=== PATIENT | male | born 1975 | race Caucasian/White ===

== ENCOUNTER → 2016-10-25 | Day surgery (SDC) | payer BC ==
[~2016-10-25] VITALS: Ht 177.8 cm; Wt 89.8 kg
[2016-10-25] VITALS (11 sets, daily range): BP systolic 103–122; BP diastolic 52–79
[~2016-10-25] MED LIST: Alfentanil 2ml Inj ONE; Atropine Inj 1mg/10ml Syr IV PRN; Bupivacaine w/Epi 0.5% 30ml Vial INJ ONE; Clindamycin 4 ML ONE; Clindamycin 600mg 0 ML IV ONE; DiphenhydrAMINE 50mg/ml Inj IVP PRN; EPINEPHrine 1mg/1ml Amp ONE; Hydromorphone 0.5mg/0.5ml inj IVP PRN; Ketorolac 30mg Inj IV PRN; Ketorolac 60mg Inj IV PRN; LORazepam Inj 2mg/ml 1ml IV PRN; LR 1000ml 1,000 ML IVLG SCH; LR 1000ml ONE; Labetalol 5mg/ml 20ml vial IV PRN; Lidocaine 1% MPF 10mg/ml 5ml ONE; METFORMIN HCL500 M1 ORAL; Meperidine 25mg/ml Inj IV PRN; Metoclopramide 10mg/2ml Inj IVP PRN; Midazolam 2mg/2ml Inj IVP PRN; Midazolam 2mg/2ml Inj ONE; NS Irrig 2000ml IRRIG ONE; Norco 5mg/325mg tab ORAL PRN; Norco 7.5mg/325mg tab ORAL PRN; Oxycodone/Acetaminophen 5-325 ORAL PRN; Propofol 10mg/ml 100ml btl IV ONE; Sterile Water Irrig 1000ml IRRIG ONE; fentaNYL 100 mcg/2 mL IV PRN
--- NOTE | 2016-10-25 06:40 | Anethesia Preoperative Eval ---
Anesthesia Pre-op PMH/ROS General Date of Evaluation: Oct 25, 2016 Time of Evaluation: 06:56 Anesthesiologist: Mounika ASA Score: ASA 2 Mallampati Score Class I : Soft palate, uvula, fauces, pillars visible Class II: Soft palate, uvula, fauces visible Class III: Soft palate, base of uvula visible Class IV: Only hard plate visible Mallampati Classification: Class II Surgeon: Rehan Diagnosis: R Knee Pain Surgical Procedure: R Knee Arthroscopy Anesthesia History: none Family History: no anesthesia problems Allergies: Coded Allergies: PENICILLINS (Verified Allergy, Severe, 10/24/16) ANAPHYLACTIC SHOCK Medications: see eMAR Past Medical History Gastrointestinal/Genitourinary: Reports: other - Hemorrhoids Endocrine: Reports: DM PSxH Narrative: Appendectomy, Cervical Spine Anesthesia Pre-op Phys. Exam Physician Exam Last Vital Signs Date Time Temp Pulse Resp B/P Pulse Ox O2 Delivery O2 Flow Rate FiO2 10/25/16 05:50 97.3 52 20 103/59 98 Room Air Constitutional: NAD Neurologic: CN 2-12 intact Cardiovascular: RRR Respiratory: CTA Gastrointestinal: S/NT/ND Airway Exam Mallampati Score: Class II MO: full ROM: full Teeth: intact Anesthesia Pre-op A/P Risk Assessment & Plan Assessment: ASA 2 Plan: GA, BIS Status Change Before Surgery: No Pre-Antibiotics Dru mg Clindamycin IV Given Within 1 Hr of Incision: Yes Time Given: 07:08 Hector Ribera MD Oct 25, 2016 06:40
--- NOTE | 2016-10-25 06:42 | Immediate Post-Op Evaluation ---
Immediate Post-Op Evalulation Immediate Post-Op Evalulation Procedure: R Knee Arthroscopy Date of Evaluation: Oct 25, 2016 Time of Evaluation: 08:14 IV Fluids: 700 LR Blood Products: 0 Estimated Blood Loss: 8 Urinary Output: 0 Blood Pressure Systolic: 114 Blood Pressure Diastolic: 75 Pulse Rate: 64 Respiratory Rate: 16 O2 Sat by Pulse Oximetry: 100 Temperature (Fahrenheit): 98.2 Pain Score (1-10): 2 Nausea: No Vomiting: No Complications 0 Patient Status: awake, reacts, patent, extubated, none Hydration Status: adequate Dru mg Clindamycin IV Given Within 1 Hr of Incision: Yes Time Given: 07:08 Hector Ribera MD Oct 25, 2016 06:42
--- NOTE | 2016-10-25 06:43 | 48 Hour Post Anesthesia Eval ---
Post Anesthesia Evaluation Procedure: R Knee Arthroscopy Date of Evaluation: Oct 25, 2016 Time of Evaluation: 10:21 Blood Pressure Systolic: 112 0: 72 Pulse Rate: 63 Respiratory Rate: 18 Temperature (Fahrenheit): 98.2 O2 Sat by Pulse Oximetry: 100 Airway: patent Nausea: No Vomiting: No Pain Intensity: 2 Hydration Status: adequate Cardiopulmonary Status: Stable Mental Status/LOC: patient returned to baseline Follow-up Care/Observations: 0 Post-Anesthesia Complications: 0 Follow-up care needed: ready to discharge Hector Ribera MD Oct 25, 2016 06:43
--- NOTE | 2016-10-25 06:45 | Pre-Procedure Note/Attestation ---
Pre-Procedure Note/Attestation Complete Prior to Procedure Planned Procedure: right Procedure Narrative: knee scope partial medial menisectomy Indications for Procedure Pre-Operative Diagnosis: medial meniscus tear Attestation I attest that I discussed the nature of the procedure; its benefits; risks and complications; and alternatives (and the risks and benefits of such alternatives ), prior to the procedure, with the patient (or the patient's legal service support representative). I attest that, if there was a reasonable possibility of needing a blood transfusion, the patient (or the patient's legal service support representative) was given the [facility] standardized written summary, pursuant to the [place] Blood Safety Act ([place] Health and Safety Code # 1645, as amended). I attest that I re-evaluated the patient just prior to the surgery and that there has been no change in the patient's H&P, except as documented below: FLY GRAVES Oct 25, 2016 06:45
--- NOTE | 2016-10-28 13:17 | Operative Note - Dictated ---
DATE OF OPERATION: 10/25/2016 SURGEON: Derrick Van M.D. BINDING CEMENTER FRENCH CORD: None. ANESTHESIA: General/LMA. INDICATION FOR OPERATION: This is an approximately 41-year-old male who is status post right knee trauma. He has failed conservative measures. MRI revealed a medial meniscus tear. ESTIMATED BLOOD LOSS: 5 mL. TOURNIQUET TIME: Zero. COMPLICATIONS: None. DESCRIPTION OF PROCEDURE IN DETAIL: After a time-out, the patient was placed under general LMA anesthesia. The right knee was prepped and draped in usual sterile fashion. Arthroscopic portals were established anteromedially and anterolaterally after instillation of Marcaine. The arthroscope was then introduced into the anterolateral portal. A thorough inspection was carried out of the contents of the knee. OPERATIVE FINDINGS: Suprapatellar pouch was normal. Patellofemoral joint was within normal limits. Lateral and medial gutters normal. Medial compartment, intact articular cartilage with posterior horn parrot beak type tear and the lateral compartment is normal. ACL normal. The pathology in the medial compartment was depressed. Using a lateral post and gentle valgus force, the medial compartment could be opened to allow visualization and instrumentation of the posterior horn of the medial meniscus. A straight basket was used to trim back the parrot beak tear to a stable margin. A shaver was used to remove the fragments of meniscus. The posterior aspect of the knee was massaged to remove any remaining fragments and to adequately visualize the remnant of the medial meniscus. It is estimated that about 20% of the meniscus required removal. A shaver was also used to smooth out any remaining rough edges of the medial meniscus. Once the partial medial meniscectomy was completed, the probe was reinserted and the remaining meniscus was probed in its entirety, superiorly and inferiorly. No additional care or irregular edges were noted. Next, the arthroscope was placed into the notch. The ACL was normal. Nevertheless, we did not remove the ligamentum mucosum as adequate visualization has been obtained. Next, the arthroscope was introduced into the anteromedial portal and thorough inspection carried out of the lateral compartment of the right knee. The meniscus was probed in its entirety. The chondral surfaces and the meniscus were normal. The arthroscopy was taken back up into the suprapatellar notch and patellofemoral joint. No other pathology was noted. No points of bleeding were identified. The arthroscopic portals were re-infiltrated with Marcaine. A 4-0 Vicryl suture was used to perform a subcuticular closure. Steri-Strips were applied. Sterile dressing was applied to the limb. The patient was awakened in the operating room in satisfactory condition. Derrick Van M.D. DR: SHAN JOB#: [id number] CC: Derrick Van M.D.; [address] [place] [address] [place]; [place] [address] [facility]
== END | disposition home or self-care (01) ==
LOC: SUR 05:10
DX: M23.221 Derangement of posterior horn of medial meniscus due to old tear or injury, right knee (principal); R73.03 Prediabetes; Z88.0 Allergy status to penicillin
CPT/HCPCS: 29881; 82962; 97161; J0171; J2250; J2405; J2704; J3490; J7120; S0077; 94003; 94150